=== PATIENT | female | born 1975 | race African-American/Black ===

== ENCOUNTER 2017-10-02 09:14 | Emergency (ER) | payer SELFPAY ==
[~2017-10-02] VITALS: Ht 160 cm; Wt 112.0 kg
[2017-10-02 09:21] VITALS: Ht 160 cm; Wt 112.0 kg
[2017-10-02 10:18] VITALS: BP 141/91
== END 2017-10-02 10:19 | disposition home or self-care (01) ==
LOC: ED 09:14
DX: S39.012A Strain of muscle, fascia and tendon of lower back, initial encounter (principal); I10 Essential (primary) hypertension; E11.9 Type 2 diabetes mellitus without complications; E78.00 Pure hypercholesterolemia, unspecified; W18.39XA Other fall on same level, initial encounter; Y93.89 Activity, other specified; Y92.89 Other specified places as the place of occurrence of the external cause; Y99.8 Other external cause status